=== PATIENT | female | born 1975 | race Two or more races ===

== ENCOUNTER 2019-09-14 16:38 | Emergency (ER) | payer BC, MEDICAID ==
[~2019-09-14] VITALS: Ht 162.6 cm; Wt 77.1 kg
[~2019-09-14 16:38] MED LIST: BIRTH CONTROL
[2019-09-14 17:02] VITALS: BP_SYST 120
[2019-09-14 17:50] LABS: HCG,QUAL RESULT NEGATIVE (NEGATIVE)
[2019-09-14 17:54] LABS: BILIRUBIN,URINE NEGATIVE (NEGATIVE); BLOOD, URINE NEGATIVE (NEGATIVE); CLARITY/URINE CLEAR (CLEAR); COLOR,URINE YELLOW (YELLOW); GLUCOSE,URINE NEGATIVE (NEGATIVE); KETONES,URINE NEGATIVE (NEGATIVE); LEUKOCYTE ESTERASE ,URINE NEGATIVE (NEGATIVE); NITRITE, URINE NEGATIVE (NEGATIVE); PH,URINE 7.5 (5.0-8.0); PROTEIN URINE NEGATIVE (NEGATIVE); UROBILINOGEN,URINE 0.2 (0.2-1.0)
[2019-09-14] MEDS ORDERED: KETOROLAC TROMETHAMINE 60 MG/2 ML VIAL IM ONE (18:45)
[2019-09-14 18:56] VITALS: BP_SYST 120
== END 2019-09-14 18:56 | disposition home or self-care (01) ==
LOC: SED 16:38
DX: S80.12XA Contusion of left lower leg, initial encounter (principal); R03.0 Elevated blood-pressure reading, without diagnosis of hypertension; F41.9 Anxiety disorder, unspecified; X58.XXXA Exposure to other specified factors, initial encounter; Y93.89 Activity, other specified; Y92.89 Other specified places as the place of occurrence of the external cause; Y99.8 Other external cause status
CPT/HCPCS: 81003; 81025; 84703; 93971; 99284; J1885